=== PATIENT | male | born 1950 | race Caucasian/White ===

== ENCOUNTER 2024-03-31 22:28 | Emergency (ER) | payer MEDICARE, BC, SELFPAY ==
[2024-03-31 22:30] VITALS: BP 155/73
[2024-03-31 22:59] LABS: % Basophils 0.5 % (0-2); % Eosinophils 2.4 % (0-6); % Immature Granulocytes 0.3 % (0-0.5); % Lymphocytes 25.3 % (20.5-51.1); % Monocytes 11.7 % (1.7-9.3); % Neutrophils 59.8 % (42.2-75.2); Absolute Basophils 0.1 10^3/uL (0-0.2); Absolute Eosinophils 0.2 10^3/uL (0-0.7); Absolute Lymphocytes 2.6 10^3/uL (1.2-3.4); Absolute Monocytes 1.2 10^3/uL (0.1-0.6); Absolute Neutrophils 6.1 10^3/uL (1.4-6.5); Hematocrit 45.4 % (39.0-52.0); Hemoglobin 15.6 g/dL (13.0-18.0); Mean Corp Hgb Conc. 34.4 g/dL (33.0-37.0); Mean Corpuscular Hgb 31.4 pg (27.0-31.0); Mean Corpuscular Volume 91.3 fL (80.0-94.0); Mean Platelet Volume 8.4 fL (7.4-10.4); Nucleated Red Blood Cells % 0 % (-); Platelet Count 293 10^3/uL (130-400); Red Blood Cell Count 4.97 10^6/uL (4.70-6.10); Red Cell Dist. Width 13.6 % (11.5-14.5); White Blood Cell Count 10.2 10^3/uL (4.8-10.8)
[2024-03-31 23:05] LABS: ALT (SGPT) 26 U/L (0-50); AST (SGOT) 28 U/L (17-59); Albumin 4.6 g/dl (3.5-5.0); Alkaline Phosphatase 59 U/L (38-126); Blood Urea Nitrogen 27 mg/dl (9-20); Calcium 9.3 mg/dl (8.4-10.2); Carbon Dioxide 28 mmol/L (22-30); Chloride 101 mmol/L (98-107); Glucose 103 mg/dl (70-99); Potassium 4.4 mmol/L (3.5-5.1); Sodium 138 mmol/L (135-145); Total Bilirubin 1.2 mg/dl (0.2-1.3); eGFR > 60.00
[2024-03-31 23:16] LABS: Troponin I < 0.012 ng/ml
--- NOTE | 2024-04-01 00:51 | ED.GENMED ---
History of Present Illness
General
Chief Complaint: Cardiac Symptoms
Time Seen by Provider: 04/01/24 00:51
History of Present Illness
History of Present Illness:
TIME OF INITIAL ENCOUNTER: 1 AM
HPI: The patient is visiting from [place]. He was here today to visit his son. He started feeling unwell. He was having periods of rather significant tinnitus and had a general unwell feeling. He said he had tingling in his arms earlier in
the day as well. Sometimes when he has episodes like this he just lays down and goes away. Today it was recurring. He denies any chest pain. He was primarily concerned about his blood pressure. He has had blood pressure adjustment. He still
takes amlodipine 10 mg daily and his metoprolol was decreased from 50 mg to 25 mg. He is not sure why they switched it but said he was feeling unwell even before the medication was changed. This was changed about 3 weeks ago.
EXAM:
GENERAL: Well appearing in no distress, the patient is hypertensive and slightly bradycardic
HEENT: Moist oral mucosa
CARDIOVASCULAR: No murmurs, normal heart rate, regular rhythm, No chest wall tenderness
PULMONARY: No respiratory distress, breath sounds are clear and equal
ABDOMEN: Soft with no peritoneal signs, no tenderness
NEUROLOGIC: Excellent strength all extremities, no coordination deficits
PSYCHIATRIC: Appropriate mental status, normal insight and judgement
EXTREMITIES: Nontender, no edema, moves all extremities equally
SKIN: No rash, no lesions,
NUMBER AND COMPLEXITY OF PROBLEMS ADDRESSED AT THE ENCOUNTER
� Chronic conditions affecting care: High blood pressure, BPH
� Acute Exacerbation and/or Progression of Chronic Illness: This is an acute problem
� Differential Diagnosis includes: Labile hypertension, medication reaction, electrolyte abnormality, doubt ACS given lack of chest pain, dysrhythmia, anxiety
AMOUNT AND/OR COMPLEXITY OF DATA TO BE REVIEWED AND ANALYZED
� I performed an independent evaluation of and my interpretation is:
EKG: Sinus 51, left axis deviation, first-degree AV
CT:
X-rays:
Laboratory Studies: CBC normal, chemistries unremarkable, troponin less than 0.012
Other:
� Review of other/old records: No old records available for review in [facility]
� Clinical information was obtained by an independent historian: I spoke to the son at bedside
� Prescriptions/Medications Considered but not given:
� Further testing considered but not performed:
RISK OF COMPLICATIONS AND/OR MORBIDITY OR MORTALITY OF PATIENT MANAGEMENT
� Social determinants of health affecting care: Lives at home in [place]
� Discussion with other providers:
� Escalation of care including admission/observation vs risk of discharge considered: The patient recently had his beta-eliz decreased. The exact reasons for this is unclear. No clear indication to emergently lower blood
pressure at this time. Heart rate has primarily been in the 50s in the 40s as well�I suspect that this is the reason why his crime specialist decreased the beta-eliz. He is to follow-up with his crime specialist in [place].
ANY OTHER UPDATES:
Phy Exam
Physical Exam
Physical Exam:
See HPI
Course
Orders/Labs/Results
Orders:
Orders
03/31/24 22:29
Electrocardiogram (*1) Urgent
Reason for Study: Atrial Fibrillation
03/31/24 22:30
EKG- Treatment ONCE
03/31/24 22:44
CMP [Comprehensive Metabolic Panel] Urgent
Complete Blood Count/With Diff Urgent
Troponin I Urgent
Abnormal Lab Results
03/31/24
22:44
MCH 31.4 H pg
(27.0-31.0)
Absolute Monos (auto) 1.2 H 10^3/uL
(0.1-0.6)
Monocytes % 11.7 H %
(1.7-9.3)
BUN 27 H mg/dl
(9-20)
Glucose 103 H mg/dl
(70-99)
03/31/24 22:44
03/31/24 22:44
Vital Signs
Initial and Last Documented VS:
Initial Vital Signs
Temp Pulse Resp BP Pulse Ox
36.8 C 51 16 155/73 99
03/31/24 22:30 03/31/24 22:30 03/31/24 22:30 03/31/24 22:30 03/31/24 22:30
Last Documented Vital Signs
Temp Pulse Resp BP Pulse Ox
36.8 C 48 12 161/72 98
03/31/24 22:30 04/01/24 01:00 04/01/24 01:00 04/01/24 01:00 04/01/24 01:00
*Critical Care Note
Total Time (30-74mins, 75-104mins- exclusive of procedures): Not Applicable
ED Attending Note
-
Portions of this chart may have been created with voice recognition software.� Occasional wrong word or��sound alike� substitutions may have occurred due to the inherent limitations of voice recognition software.
Discharge Plan
Departure
Patient Disposition: Home (Routine Discharge)
Date of Disposition: 04/01/24
Time of Disposition: 01:05
Patient with high blood pressure during this ER visit?: Yes
Discharge Problem:
Dizziness
Instructions: Dizziness
Activity Restrictions/Additional Instructions:
Basic blood work is unremarkable. Your 'BUN to creatinine ratio' is slightly high which can be seen with a little bit of dehydration but overall your kidney function is normal. Your white blood cell count and hemoglobin and electrolytes are all
normal. Cardiac blood test for heart attack was negative. Glucose was 103. Follow-up with your crime specialist in [place]. Return here if worse or other concerns.
Interventions
Interventions:
*Risk Screen - Suicide Last Done: 04/01/24 01:16
*General Assessment Last Done: 03/31/24 22:30
*Neglect/Abuse Screening Last Done: 03/31/24 22:30
ED- Fall Risk Assessment Last Done: 04/01/24 01:00
*ED COVID-19 Vaccine History Last Done: 03/31/24 22:30
*Nursing Disposition Last Done: 04/01/24 01:16
ED- Pulmonary Assessment Last Done: 04/01/24 01:00
ED- Cardiac Assessment Last Done: 04/01/24 01:00
Discharge Date and Time
Discharge Date/Time: 04/01/24 01:30
Print Language: [id number]
[2024-04-01 00:57] VITALS: BP 156/79; BMI 32.7
[2024-04-01 01:00] VITALS: BP 161/72
== END 2024-04-01 01:30 | disposition home or self-care (01) ==
LOC: EMR 22:28
PROVIDERS: Student in an Organized Health Care Education/Training Program; EMERGENCY PHYSICIAN Emergency Medicine
DX: R42 Dizziness and giddiness (principal); I48.91 Unspecified atrial fibrillation; Z79.899 Other long term (current) drug therapy
CPT/HCPCS: 99283; 80053; 84484; 85025; 93005